=== PATIENT | male | born 1945 | race Two or more races ===

== ENCOUNTER → 2017-10-03 | Outpatient (CLI) | payer MEDICARE | END | disposition home or self-care (01) | LOC: RADPV 14:26 | PROVIDERS: ATTEND Internal Medicine Cardiovascular Disease | DX: I25.10 Atherosclerotic heart disease of native coronary artery without angina pectoris (principal); I35.1 Nonrheumatic aortic (valve) insufficiency; I35.0 Nonrheumatic aortic (valve) stenosis; R01.1 Cardiac murmur, unspecified | CPT/HCPCS: 93306 ==